=== PATIENT | male | born 1955 | race Caucasian/White ===

== ENCOUNTER 2022-06-28 08:04 | Outpatient (RCR) | payer OTHER, SELFPAY ==
--- NOTE | 2022-06-28 08:48 | ONC.NURNOTE ---
20 g IV placed for Rad Tx; labs drawn off IV by flex o writer operator.
[2022-06-28 09:10] LABS: Creatinine* 0.9 mg/dL (0.5-1.5); Est. Creatinine Clearance* 74.63; Estimated Glomerular Filt Rate 95 ml/min
== END 2022-12-25 23:59 | disposition home or self-care (01) ==
LOC: CCIC 08:04
PROVIDERS: PCP Internal Medicine Hematology & Oncology; Visit Provider Internal Medicine
DX: C77.9 Secondary and unspecified malignant neoplasm of lymph node, unspecified (principal)
CPT/HCPCS: 36415; 36592; 82565